=== PATIENT | male | born 1970 | race Caucasian/White ===

== ENCOUNTER 2016-10-07 06:28 | Emergency (ER) | payer SELFPAY ==
[~2016-10-07] VITALS: Ht 167.6 cm; Wt 74.8 kg
[2016-10-07] MEDS ORDERED: PREDNISONE50 MG PO (09:48)
[2016-10-07 10:09] VITALS: BP 139/92
== END 2016-10-07 10:05 | disposition home or self-care (01) ==
LOC: EME 06:28
DX: T78.40XA Allergy, unspecified, initial encounter (principal)
CPT/HCPCS: 70360; 99281; 99285; J1200; J2930; S0028